=== PATIENT | male | born 1945 | race Hispanic/Latino ===

== ENCOUNTER 2017-08-24 16:39 | Inpatient (IN) | payer MEDICARE ==
[~2017-08-24] VITALS: Ht 167.6 cm; Wt 94.5 kg
[2017-08-24] MEDS: IPRATROPIUM 0.5 MG/2.5 ML INH IH SCH ×4 (08:10→18:00)
[~2017-08-24 16:39] MED LIST: CANA300T PO; EZET10 PO; IPRAHFA IH; LISI10TA7 PO; MECLIZINE PO; MELO-108 PO; METF10004 PO; MONT10TA21 PO; OMEP40CA37 PO; PRAV80TA21 PO; SAXA5TAB PO; TAMS-1 PO; VIT1TABL83 PO
[2017-08-24] MEDS ORDERED: SODIUM CHLORIDE 0.9% 1000ML 1,000 ML IV ONE ×4 (16:53→21:04)
[2017-08-24 17:08] LABS: BASOPHILS % (AUTO) 1.1 % (0.0-5.0); HEMATOCRIT 37.6 % (42-54); MEAN CORPUSCULAR HEMOGLOBIN 29.3 pg (27.0-33.0); MEAN CORPUSCULAR HGB CONC 34.7 g/dL (32.0-36.0); MEAN CORPUSCULAR VOLUME 84.4 fL (79-99); MONOCYTES % (AUTO) 6.2 % (3.0-13.0); NEUTROPHILS % (AUTO) 74.7 % (40.0-77.0); PLATELET COUNT (AUTO) 398 K/uL (130-400); RED BLOOD CELL COUNT(AUTO) 4.45 MIL/uL (4.50-6.20); RED CELL DISTRIBUTION WIDTH 13.9 % (11.0-15.5); WHITE BLOOD COUNT (AUTO) 7.8 K/uL (4.8-10.8)
[2017-08-24 17:38] LABS: ALBUMIN 2.8 g/dL (3.5-5.0); BILIRUBIN,TOTAL 0.3 mg/dL (0.2-1.0); CREATINE KINASE MB 1.4 ng/mL (0.5-3.6); CREATININE 1.8 mg/dL (0.5-1.5); POTASSIUM 4.2 mmol/L (3.5-5.1); TOTAL PROTEIN, SERUM 6.1 g/dL (6.0-8.3)
[2017-08-24] MEDS ORDERED: INSULIN HUMULIN R 100 UNIT/ML 3ML ONE ×2 (18:06→18:58)
[2017-08-24 18:23] LABS: BASE EXCESS,VENOUS BLOOD GAS -6.5 (-2.0-3.0); PCO2,VENOUS BLOOD GAS 49 (35-48); PH,VENOUS BLOOD GAS 7.247 (7.350-7.450)
[2017-08-24 19:42] LABS: APPEARANCE,URINE Clear (CLEAR); BILIRUBIN,URINE Negative (NEGATIVE); COLOR,URINE Yellow (YELLOW); GLUCOSE, URINE (UA) >=1000 mg/dL (NEGATIVE); KETONES,URINE Negative (NEGATIVE); LEUKOCYTE ESTERASE ,URINE Negative (NEGATIVE); NITRATE,URINE Negative (NEGATIVE); OCCULT BLOOD,URINE Negative (NEGATIVE); PROTEIN,URINE Negative (NEGATIVE); UROBILINOGEN,URINE 0.2 mg/dL (0.2-1.0)
[2017-08-24 19:53] LABS: BACTERIA,URINE Rare /HPF (None Seen); RBC,URINE 0-1 /HPF (0-1); WBC,URINE 0-1 /HPF (0-1); YEAST,URINE BUDDING Rare /HPF (None Seen)
[2017-08-24 19:54] LABS: SQUAMOUS EPITHELIAL CELL,UR Rare /HPF (0-2)
[2017-08-24] MEDS ORDERED: POTASSIUM CHLORIDE 20 MEQ ERTAB PO PRN (20:00)
[2017-08-24] MEDS ORDERED: POTASSIUM CHLORIDE 10% ELIXIR 20 MEQ/15 ML UDCUP PO PRN (20:00)
[2017-08-24] MEDS ORDERED: FAMOTIDINE 20MG TAB 20 MG TAB PO SCH (20:00)
[2017-08-24] MEDS ORDERED: GLUCAGON 1MG KIT 1 MG ML IM PRN (20:00)
[2017-08-24] MEDS ORDERED: DEXTROSE 50%-WATER 50 ML DISP.SYRIN IV PRN (20:00)
[2017-08-24] MEDS ORDERED: POTASSIUM CHLORIDE 20MEQ/100ML 100 ML IV PRN (20:00)
[2017-08-24] MEDS ORDERED: LIDOCAINE HCL-MPF 1% 2ML VIAL IVP PRN (20:00)
[2017-08-24] MEDS ORDERED: EZETIMIBE 10 MG TAB PO SCH (21:00)
[2017-08-24] MEDS ORDERED: FAMOTIDINE 20MG TAB 20 MG TAB ONE (21:04)
[2017-08-25 05:55] LABS: HEMOGLOBIN A1C 11.7 % (4.0-6.0)
[2017-08-25 05:58] LABS: CREATININE 1.1 mg/dL (0.5-1.5)
[2017-08-25] MEDS: IPRATROPIUM 0.5 MG/2.5 ML INH IH SCH ×6 (06:00→23:34)
[2017-08-25] MEDS ORDERED: INSULIN DETEMIR 10ML 100 UNIT/ML 10ML SQ SCH (07:30)
[2017-08-25] MEDS ORDERED: IPRATROPIUM 0.5 MG/2.5 ML INH IH ONE (08:08)
[2017-08-25] MEDS: ENOXAPARIN SODIUM 40 MG/0.4 ML SYRINGE SQ SCH (09:00)
[2017-08-25] MEDS: SAXAGLIPTIN HCL 5 MG PO SCH (09:00)
[2017-08-25] MEDS: VITAMIN B COMPLEX 1 CAPSULE PO SCH (09:00)
[2017-08-25] MEDS: TAMSULOSIN HCL 0.4 MG CAP.ER.24H PO SCH (09:00)
[2017-08-25] MEDS: MELOXICAM 7.5 MG TABLET PO SCH (09:00)
[2017-08-25] MEDS: LISINOPRIL 10 MG TABLET PO SCH (09:00)
[2017-08-25] MEDS: CANAGLIFLOZIN 300 MG PO SCH (09:00)
[2017-08-25] MEDS: MONTELUKAST SODIUM 10 MG TAB PO SCH (09:00)
[2017-08-25] MEDS ORDERED: ENOXAPARIN SODIUM 40 MG/0.4 ML SYRINGE SQ ONE (09:02)
[2017-08-25 15:03] VITALS: BP 148/65
[2017-08-25 16:00] VITALS: BP 134/65
[2017-08-25] MEDS ORDERED: LEVOFLOXACIN 500 MG/D5W 100 ML 100 ML IV SCH (16:00)
[2017-08-25] MEDS: SODIUM CHLORIDE 0.9% 1000ML 1,000 ML IV SCH ×3 (16:33→21:03)
[2017-08-25] MEDS: INSULIN LISPRO 100 UNIT/ML 3ML SQ SCH ×2 (17:51→21:02)
[2017-08-25 20:00] VITALS: BP 140/68
[2017-08-25] MEDS: PRAVASTATIN SODIUM 80 MG PO SCH (21:00)
[2017-08-26] VITALS: BP 118/62
[2017-08-26 03:53] VITALS: BP 140/76
[2017-08-26 04:55] LABS: HEMATOCRIT 36.7 % (42-54); MEAN CORPUSCULAR HEMOGLOBIN 28.7 pg (27.0-33.0); MEAN CORPUSCULAR HGB CONC 34.3 g/dL (32.0-36.0); MEAN CORPUSCULAR VOLUME 83.6 fL (79-99); NUCLEATED RED BLOOD CELLS 0.1 % (0.0-0.19); PLATELET COUNT (AUTO) 326 K/uL (130-400); RED BLOOD CELL COUNT(AUTO) 4.39 MIL/uL (4.50-6.20); RED CELL DISTRIBUTION WIDTH 14.1 % (11.0-15.5); WHITE BLOOD COUNT (AUTO) 7.1 K/uL (4.8-10.8)
[2017-08-26 05:01] LABS: MAGNESIUM 1.8 mg/dL (1.80-2.40)
[2017-08-26] MEDS: SODIUM CHLORIDE 0.9% 1000ML 1,000 ML IV SCH ×2 (05:20→12:00)
[2017-08-26] MEDS: INSULIN LISPRO 100 UNIT/ML 3ML SQ SCH ×2 (06:32→13:00)
[2017-08-26] MEDS: IPRATROPIUM 0.5 MG/2.5 ML INH IH SCH ×2 (06:37→11:01)
[2017-08-26] MEDS ORDERED: INSULIN GLARGINE 100 UNITS/ML 10 ML VIAL SQ SCH (07:30)
[2017-08-26] MEDS: MONTELUKAST SODIUM 10 MG TAB PO SCH (07:56)
[2017-08-26] MEDS: TAMSULOSIN HCL 0.4 MG CAP.ER.24H PO SCH (07:57)
[2017-08-26] MEDS: MELOXICAM 7.5 MG TABLET PO SCH (07:57)
[2017-08-26] MEDS: VITAMIN B COMPLEX 1 CAPSULE PO SCH (07:57)
[2017-08-26] MEDS: ENOXAPARIN SODIUM 40 MG/0.4 ML SYRINGE SQ SCH (07:58)
[2017-08-26 08:00] VITALS: BP 143/65
[2017-08-26] MEDS: CANAGLIFLOZIN 300 MG PO SCH (08:00)
[2017-08-26] MEDS: SAXAGLIPTIN HCL 5 MG PO SCH (08:00)
[2017-08-26] MEDS: PRAVASTATIN SODIUM 80 MG PO SCH (08:01)
[2017-08-26] MEDS: LISINOPRIL 10 MG TABLET PO SCH (08:19)
[2017-08-26 11:45] VITALS: BP 136/72
[2017-08-26] MEDS ORDERED: LEVO500T2 PO (13:22)
== END 2017-08-26 17:20 | disposition home or self-care (01) | DRG 202 ==
LOC: EDH 16:39 → EDHIP 19:02 → 3CH 08-25 14:46
PROVIDERS: ADMIT Internal Medicine Nephrology; ATTEND Internal Medicine Nephrology
DX: J20.9 Acute bronchitis, unspecified (principal); J44.0 Chronic obstructive pulmonary disease with (acute) lower respiratory infection; E11.65 Type 2 diabetes mellitus with hyperglycemia; J44.1 Chronic obstructive pulmonary disease with (acute) exacerbation; E86.0 Dehydration; E66.9 Obesity, unspecified; E78.5 Hyperlipidemia, unspecified; I10 Essential (primary) hypertension; Z91.81 History of falling; N47.1 Phimosis; M19.90 Unspecified osteoarthritis, unspecified site; K21.9 Gastro-esophageal reflux disease without esophagitis; N40.1 Benign prostatic hyperplasia with lower urinary tract symptoms; Z68.33 Body mass index [BMI] 33.0-33.9, adult; Z85.72 Personal history of non-Hodgkin lymphomas
CPT/HCPCS: 36415; 36600; 71045; 80048; 80053; 80061; 81001; 82550; 82553; 82803; 82948; 83036; 83605; 83735; 84443; 84484; 85025; 85027; 87040; 87088; 87633; 93005; 94640; 94664; 99291; J1650; J1815; J1956; J7030

== ENCOUNTER 2017-08-29 03:39 | Emergency (ER) | payer MEDICARE ==
[~2017-08-29 03:39] MED LIST changes: +LEVO500T2 PO
[2017-08-29 04:14] LABS: APPEARANCE,URINE Clear (CLEAR); BILIRUBIN,URINE Negative (NEGATIVE); COLOR,URINE Yellow (YELLOW); GLUCOSE, URINE (UA) >=1000 mg/dL (NEGATIVE); KETONES,URINE Negative (NEGATIVE); LEUKOCYTE ESTERASE ,URINE Trace (NEGATIVE); NITRATE,URINE Negative (NEGATIVE); OCCULT BLOOD,URINE Negative (NEGATIVE); PH,URINE 6.5 (5.0-8.0); PROTEIN,URINE Negative (NEGATIVE); UROBILINOGEN,URINE 0.2 mg/dL (0.2-1.0)
[2017-08-29 04:21] LABS: BACTERIA,URINE None Seen /HPF (None Seen); RBC,URINE None Seen /HPF (0-1); SQUAMOUS EPITHELIAL CELL,UR Few /HPF (0-2); WBC,URINE 0-1 /HPF (0-1)
[2017-08-29 04:46] LABS: BASOPHILS % (AUTO) 1.1 % (0.0-5.0); EOSINOPHILS % (AUTO) 2.7 % (0.0-8.0); HEMATOCRIT 39.6 % (42-54); LYMPHOCYTES % (AUTO) 25.1 % (21.0-51.0); MEAN CORPUSCULAR HEMOGLOBIN 27.9 pg (27.0-33.0); MEAN CORPUSCULAR HGB CONC 33.4 g/dL (32.0-36.0); MEAN CORPUSCULAR VOLUME 83.6 fL (79-99); MONOCYTES % (AUTO) 10.9 % (3.0-13.0); NEUTROPHILS % (AUTO) 60.2 % (40.0-77.0); NUCLEATED RED BLOOD CELLS 0.1 % (0.0-0.19); PLATELET COUNT (AUTO) 317 K/uL (130-400); RED BLOOD CELL COUNT(AUTO) 4.73 MIL/uL (4.50-6.20); RED CELL DISTRIBUTION WIDTH 14.1 % (11.0-15.5); WHITE BLOOD COUNT (AUTO) 7.2 K/uL (4.8-10.8)
[2017-08-29] MEDS ORDERED: IPRATROPIUM/ALBUTEROL SULFATE 3 ML SOLUTION IH ONE (04:47)
[2017-08-29 04:57] LABS: CREATININE 1.1 mg/dL (0.5-1.5); POTASSIUM 4.3 mmol/L (3.5-5.1)
[2017-08-29 05:02] LABS: ALBUMIN 3.3 g/dL (3.5-5.0); BILIRUBIN,TOTAL 0.5 mg/dL (0.2-1.0)
[2017-08-29 05:11] LABS: CREATINE KINASE MB 1.7 ng/mL (0.5-3.6); CREATINE KINASE, TOTAL 142 U/L (21-232); MYOGLOBIN 92 ng/mL (10-92); TROPONIN I < 0.04 ng/mL (0.00-0.06)
[2017-08-29] MEDS ORDERED: LIDOCAINE HCL 2% VISCOUS 15 ML UDCUP ONE (05:37)
[2017-08-29] MEDS ORDERED: MAG HYDROX/AL HYDROX/SIMETH ES 30 ML SUSP UDCUP ONE (05:37)
== END 2017-08-29 07:05 | disposition home or self-care (01) ==
LOC: EDH 03:39
DX: K21.9 Gastro-esophageal reflux disease without esophagitis (principal); M19.90 Unspecified osteoarthritis, unspecified site; E11.9 Type 2 diabetes mellitus without complications; E78.5 Hyperlipidemia, unspecified; I10 Essential (primary) hypertension; Z98.890 Other specified postprocedural states
CPT/HCPCS: 36415; 71045; 80053; 81001; 82550; 82553; 83874; 84484; 85025; 93005; 94640

== ENCOUNTER 2017-09-07 02:12 | Emergency (ER) | payer MEDICARE ==
[2017-09-07] MEDS ORDERED: LIDOCAINE HCL 2% VISCOUS 15 ML UDCUP ONE (02:26)
[2017-09-07] MEDS ORDERED: MAG HYDROX/AL HYDROX/SIMETH ES 30 ML SUSP UDCUP ONE (02:26)
[2017-09-07 02:32] LABS: BASOPHILS % (AUTO) 0.8 % (0.0-5.0); EOSINOPHILS % (AUTO) 3.4 % (0.0-8.0); HEMATOCRIT 37.3 % (42-54); LYMPHOCYTES % (AUTO) 24.7 % (21.0-51.0); MEAN CORPUSCULAR HEMOGLOBIN 28.2 pg (27.0-33.0); MEAN CORPUSCULAR HGB CONC 33.8 g/dL (32.0-36.0); MEAN CORPUSCULAR VOLUME 83.4 fL (79-99); MONOCYTES % (AUTO) 9.7 % (3.0-13.0); NEUTROPHILS % (AUTO) 61.4 % (40.0-77.0); PLATELET COUNT (AUTO) 295 K/uL (130-400); RED BLOOD CELL COUNT(AUTO) 4.47 MIL/uL (4.50-6.20); RED CELL DISTRIBUTION WIDTH 13.8 % (11.0-15.5); WHITE BLOOD COUNT (AUTO) 9.1 K/uL (4.8-10.8)
[2017-09-07 02:38] LABS: CREATININE 1.3 mg/dL (0.5-1.5)
[2017-09-07 02:43] LABS: ALBUMIN 3.2 g/dL (3.5-5.0); BILIRUBIN,TOTAL 0.4 mg/dL (0.2-1.0); TOTAL PROTEIN, SERUM 6.4 g/dL (6.0-8.3)
== END 2017-09-07 03:13 | disposition home or self-care (01) ==
LOC: EDH 02:12
DX: Z00.00 Encounter for general adult medical examination without abnormal findings (principal); R10.13 Epigastric pain; M19.90 Unspecified osteoarthritis, unspecified site; E11.9 Type 2 diabetes mellitus without complications; K21.9 Gastro-esophageal reflux disease without esophagitis; I10 Essential (primary) hypertension; Z98.890 Other specified postprocedural states
CPT/HCPCS: 36415; 71045; 80053; 83690; 84484; 85025; 93005

== ENCOUNTER 2017-10-27 00:55 | Emergency (ER) | payer MEDICARE | END 2017-10-27 03:05 | disposition home or self-care (01) | LOC: EDH 00:55 | DX: S02.2XXA Fracture of nasal bones, initial encounter for closed fracture (principal); S00.12XA Contusion of left eyelid and periocular area, initial encounter; E11.9 Type 2 diabetes mellitus without complications; E78.5 Hyperlipidemia, unspecified; I10 Essential (primary) hypertension; M19.90 Unspecified osteoarthritis, unspecified site; K21.9 Gastro-esophageal reflux disease without esophagitis; Z72.0 Tobacco use; Y04.0XXA Assault by unarmed brawl or fight, initial encounter; Y93.89 Activity, other specified; Y92.098 Other place in other non-institutional residence as the place of occurrence of the external cause; Y99.8 Other external cause status | CPT/HCPCS: 70450; 70486; 71045 ==

== ENCOUNTER 2018-07-27 16:55 | Emergency (ER) | payer MEDICARE, OTHER ==
[~2018-07-27 16:55] MED LIST changes: +ALBU18HF7 IH; +ASPI-1197 PO; +GLIP10TA9 PO; +INSU3INS3 SQ; -LEVO500T2 PO; -MECLIZINE PO; +METF-446 PO; -METF10004 PO; -OMEP40CA37 PO; -PRAV80TA21 PO; +ROSU20TA30 PO; -SAXA5TAB PO; +SITA100T12 PO; +TORS10TA18 PO; -VIT1TABL83 PO
[2018-07-27 17:35] LABS: BASOPHILS % (AUTO) 0.8 % (0.0-5.0); EOSINOPHILS % (AUTO) 2.4 % (0.0-8.0); HEMATOCRIT 40.9 % (42-54); LYMPHOCYTES % (AUTO) 18.4 % (21.0-51.0); MEAN CORPUSCULAR HEMOGLOBIN 28.9 pg (27.0-33.0); MEAN CORPUSCULAR HGB CONC 33.5 g/dL (32.0-36.0); MEAN CORPUSCULAR VOLUME 86.1 fL (79-99); MONOCYTES % (AUTO) 7.8 % (3.0-13.0); NEUTROPHILS % (AUTO) 70.6 % (40.0-77.0); PLATELET COUNT (AUTO) 238 K/uL (130-400); RED BLOOD CELL COUNT(AUTO) 4.75 MIL/uL (4.50-6.20); WHITE BLOOD COUNT (AUTO) 7.2 K/uL (4.8-10.8)
[2018-07-27 17:48] LABS: CREATININE 1.2 mg/dL (0.5-1.5); POTASSIUM 4.7 mmol/L (3.5-5.1)
[2018-07-27] MEDS ORDERED: LIDOCAINE HCL 2% VISCOUS 15 ML UDCUP ONE (17:50)
[2018-07-27] MEDS ORDERED: MAG HYDROX/AL HYDROX/SIMETH ES 30 ML SUSP UDCUP ONE (17:51)
[2018-07-27 17:53] LABS: ALBUMIN 3.5 g/dL (3.5-5.0); BILIRUBIN,TOTAL 0.3 mg/dL (0.2-1.0); TOTAL PROTEIN, SERUM 6.8 g/dL (6.0-8.3)
== END 2018-07-27 18:41 | disposition home or self-care (01) ==
LOC: EDH 16:55
DX: K30 Functional dyspepsia (principal); R19.5 Other fecal abnormalities; E11.9 Type 2 diabetes mellitus without complications; E78.5 Hyperlipidemia, unspecified; K21.9 Gastro-esophageal reflux disease without esophagitis; J45.909 Unspecified asthma, uncomplicated; M19.90 Unspecified osteoarthritis, unspecified site; I10 Essential (primary) hypertension
CPT/HCPCS: 36415; 71045; 80053; 82270; 84484; 85025; 93005

== ENCOUNTER 2019-06-23 10:09 | Emergency (ER) | payer OTHER, MEDICARE ==
[~2019-06-23 10:09] MED LIST changes: -EZET10 PO; +EZET10TA13 PO; -ROSU20TA30 PO; +ROSU20TA31 PO
[2019-06-23] MEDS ORDERED: SODIUM CHLORIDE 0.9% 1000ML 1,000 ML IV ONE (10:27)
[2019-06-23 10:50] LABS: BASOPHILS % (AUTO) 0.2 % (0.0-5.0); EOSINOPHILS % (AUTO) 0.2 % (0.0-8.0); HEMATOCRIT 39.8 % (42-54); MEAN CORPUSCULAR HGB CONC 32.4 g/dL (32.0-36.0); MEAN CORPUSCULAR VOLUME 86.3 fL (79-99); MONOCYTES % (AUTO) 4.5 % (3.0-13.0); NEUTROPHILS % (AUTO) 88.5 % (40.0-77.0); PLATELET COUNT (AUTO) 426 K/uL (130-400); RED BLOOD CELL COUNT(AUTO) 4.61 MIL/uL (4.50-6.20); RED CELL DISTRIBUTION WIDTH 12.4 % (11.0-15.5); WHITE BLOOD COUNT (AUTO) 12.2 K/uL (4.8-10.8)
[2019-06-23] MEDS ORDERED: ACETAMINOPHEN 325 MG TAB ONE (10:52)
[2019-06-23 11:01] LABS: CREATININE 0.8 mg/dL (0.5-1.5); POTASSIUM 4.7 mmol/L (3.5-5.1)
[2019-06-23] MEDS ORDERED: KETOROLAC TROMETHAMINE 30MG/ML ONE (12:04)
[2019-06-23] MEDS ORDERED: INSULIN HUMULIN R 100 UNIT/ML 3ML ONE (12:05)
== END 2019-06-23 13:34 | disposition home or self-care (01) ==
LOC: EDH 10:09
DX: S02.32XA Fracture of orbital floor, left side, initial encounter for closed fracture (principal); J45.909 Unspecified asthma, uncomplicated; E11.9 Type 2 diabetes mellitus without complications; K21.9 Gastro-esophageal reflux disease without esophagitis; E78.5 Hyperlipidemia, unspecified; I10 Essential (primary) hypertension; Z87.891 Personal history of nicotine dependence; W18.39XA Other fall on same level, initial encounter; Y93.01 Activity, walking, marching and hiking; Y92.89 Other specified places as the place of occurrence of the external cause; Y99.8 Other external cause status
CPT/HCPCS: 36415; 70486; 80048; 82948; 85025; 96374; 96375; 99285; J1815; J1885; J7030

== ENCOUNTER 2019-07-12 16:51 | Inpatient (IN) | payer OTHER, MEDICARE ==
[~2019-07-12] VITALS: Ht 167.6 cm; Wt 72.6 kg
[~2019-07-12 16:51] MED LIST changes: +AMOX-429 PO; +GABA-529 PO; +OMEP20CA12 PO; +ROPI1TAB13 PO
[2019-07-12] MEDS ORDERED: SODIUM CHLORIDE 0.9% 500ML 500 ML IV ONE ×2 (17:13→19:27)
[2019-07-12 17:14] LABS: BASOPHILS % (AUTO) 0.7 % (0.0-5.0); EOSINOPHILS % (AUTO) 0.7 % (0.0-8.0); HEMATOCRIT 33.1 % (42-54); LYMPHOCYTES % (AUTO) 11.7 % (21.0-51.0); MEAN CORPUSCULAR HEMOGLOBIN 28.1 pg (27.0-33.0); MEAN CORPUSCULAR VOLUME 87.8 fL (79-99); MONOCYTES % (AUTO) 5.5 % (3.0-13.0); PLATELET COUNT (AUTO) 391 K/uL (130-400); RED BLOOD CELL COUNT(AUTO) 3.77 MIL/uL (4.50-6.20); WHITE BLOOD COUNT (AUTO) 7.2 K/uL (4.8-10.8)
[2019-07-12] MEDS ORDERED: ASPIRIN 325 MG TABLET ONE (17:19)
[2019-07-12 17:26] LABS: CREATININE 1.2 mg/dL (0.5-1.5); POTASSIUM 4.6 mmol/L (3.5-5.1)
[2019-07-12 17:28] LABS: INR 1.04 (0.85-1.15); PARTIAL THROMBOPLASTIN TIME 31.7 SEC (26.3-35.5); PROTHROMBIN TIME 10.9 SEC (9.6-11.6)
[2019-07-12 17:33] LABS: ALBUMIN 2.2 g/dL (3.5-5.0); BILIRUBIN,TOTAL 0.4 mg/dL (0.2-1.0); TOTAL PROTEIN, SERUM 7.2 g/dL (6.0-8.3)
[2019-07-12] MEDS ORDERED: HYDROMORPHONE 1 MG/1 ML AMP ONE (21:15)
[2019-07-12] MEDS ORDERED: ONDANSETRON HCL 4 MG/2 ML VIAL ONE (21:15)
[2019-07-13] MEDS ORDERED: HYDROMORPHONE HCL 0.5 MG/0.5 ML ML IVP PRN (01:15)
[2019-07-13] MEDS ORDERED: IPRATROPIUM/ALBUTEROL SULFATE 3 ML SOLUTION IH PRN (01:15)
[2019-07-13] MEDS ORDERED: HYDROMORPHONE 1 MG/1 ML AMP ONE (03:23)
[2019-07-13 08:54] LABS: BASOPHILS % (AUTO) 0.6 % (0.0-5.0); HEMATOCRIT 32.3 % (42-54); LYMPHOCYTES % (AUTO) 12.3 % (21.0-51.0); MEAN CORPUSCULAR HGB CONC 31.9 g/dL (32.0-36.0); MEAN CORPUSCULAR VOLUME 87.8 fL (79-99); MONOCYTES % (AUTO) 6.1 % (3.0-13.0); NEUTROPHILS % (AUTO) 79.6 % (40.0-77.0); PLATELET COUNT (AUTO) 353 K/uL (130-400); RED BLOOD CELL COUNT(AUTO) 3.68 MIL/uL (4.50-6.20); WHITE BLOOD COUNT (AUTO) 7.3 K/uL (4.8-10.8)
[2019-07-13] MEDS: ENOXAPARIN SODIUM 40 MG/0.4 ML SYRINGE SQ SCH (09:00)
[2019-07-13] MEDS: ASPIRIN 81 MG EC TAB PO SCH (09:00)
[2019-07-13 09:15] LABS: CREATININE 0.9 mg/dL (0.5-1.5); POTASSIUM 4.2 mmol/L (3.5-5.1)
[2019-07-13] MEDS ORDERED: ACETAMINOPHEN 325 MG TAB ONE (10:42)
--- NOTE | 2019-07-13 14:27 | NUR ---
DCP: SNF AT [facility] met with pt who states he lives at home alone. Pt states he has been having more difficulty with completing ADLS, frequent falls at home. Pt was recently approved for provider services and does not know # of hours he was approved for. Pt also attends [facility] adult [facility] [phone] daily. Pt reports yesterday he was reaching for his dog and fell face first. Pt reports feeling dizzy and having pain to face. Pt wanting to go to [facility] [place] for [facility]. Pt signed consent for referral. [id number] on chart with consent. CM to make referral Addendum: 07/13/19 at 1435 by NEVA LAUREN Amended: Links added.
[2019-07-13 15:32] VITALS: BP 125/70
[2019-07-13] MEDS: ACETAMINOPHEN 325 MG TAB PO PRN (19:49)
[2019-07-13 19:51] VITALS: BP 121/57
[2019-07-13] MEDS: FAMOTIDINE/PF 20 MG/2 ML VIAL IV SCH (21:37)
[2019-07-13 23:48] VITALS: BP 104/55
[2019-07-14] MEDS: ACETAMINOPHEN 325 MG TAB PO PRN ×2 (03:52→23:14)
[2019-07-14 04:10] VITALS: BP 115/56
[2019-07-14 05:05] LABS: HEMATOCRIT 32.7 % (42-54); MEAN CORPUSCULAR HGB CONC 31.8 g/dL (32.0-36.0); MEAN CORPUSCULAR VOLUME 87.9 fL (79-99); PLATELET COUNT (AUTO) 386 K/uL (130-400); RED BLOOD CELL COUNT(AUTO) 3.72 MIL/uL (4.50-6.20); RED CELL DISTRIBUTION WIDTH 13.2 % (11.0-15.5); WHITE BLOOD COUNT (AUTO) 8.2 K/uL (4.8-10.8)
[2019-07-14 05:09] LABS: CREATININE 1.2 mg/dL (0.5-1.5); POTASSIUM 4.3 mmol/L (3.5-5.1)
[2019-07-14 07:37] VITALS: BP 120/58
[2019-07-14] MEDS ORDERED: ROSU20TA31 PO (08:20)
[2019-07-14] MEDS ORDERED: INSLAN SQ (08:20)
[2019-07-14] MEDS ORDERED: LACT10SO PO (08:20)
[2019-07-14] MEDS: ASPIRIN 81 MG EC TAB PO SCH (10:20)
[2019-07-14] MEDS: FAMOTIDINE/PF 20 MG/2 ML VIAL IV SCH ×2 (10:20→20:29)
[2019-07-14] MEDS: ENOXAPARIN SODIUM 40 MG/0.4 ML SYRINGE SQ SCH (10:21)
[2019-07-14 11:35] VITALS: BP 118/56
[2019-07-14] MEDS ORDERED: ALBUTEROL SULFATE 0.083% 2.5 MG/3 ML INH IH PRN (13:45)
[2019-07-14] MEDS ORDERED: LACTULOSE 20 GM/30 ML UDCUP PO PRN (13:45)
[2019-07-14] MEDS ORDERED: GABAPENTIN 100 MG CAPSULE ONE (14:57)
[2019-07-14] MEDS: GABAPENTIN 100 MG CAPSULE PO SCH (15:01)
[2019-07-14] MEDS ORDERED: GLUCAGON 1MG KIT 1 MG ML IM PRN (15:15)
[2019-07-14] MEDS ORDERED: DEXTROSE 50%-WATER 50 ML DISP.SYRIN IV PRN (15:15)
[2019-07-14 16:15] VITALS: BP 120/59
[2019-07-14] MEDS: METFORMIN HCL 500 MG TABLET PO SCH (17:56)
[2019-07-14] MEDS: INSULIN HUMULIN R 100 UNIT/ML 3ML SQ SCH ×2 (17:59→22:02)
[2019-07-14] MEDS: IPRATROPIUM 0.5 MG/2.5 ML INH IH SCH (19:19)
[2019-07-14 19:36] VITALS: BP 119/57
[2019-07-14] MEDS: EZETIMIBE 10 MG TAB PO SCH (20:29)
[2019-07-14] MEDS: MONTELUKAST SODIUM 10 MG TAB PO SCH (20:29)
[2019-07-14] MEDS: GLIPIZIDE 5 MG TABLET PO SCH (20:29)
[2019-07-14] MEDS: ATORVASTATIN CALCIUM 40 MG TABLET PO SCH (20:29)
[2019-07-14] MEDS: INSULIN GLARGINE 100 UNITS/ML 10 ML VIAL SQ SCH (21:00)
[2019-07-14 23:24] VITALS: BP 131/64
[2019-07-15 03:49] VITALS: BP 117/55
[2019-07-15 04:52] LABS: BASOPHILS % (AUTO) 0.5 % (0.0-5.0); EOSINOPHILS % (AUTO) 1.9 % (0.0-8.0); HEMATOCRIT 31.8 % (42-54); LYMPHOCYTES % (AUTO) 13.1 % (21.0-51.0); MEAN CORPUSCULAR HEMOGLOBIN 28.2 pg (27.0-33.0); MEAN CORPUSCULAR HGB CONC 32.1 g/dL (32.0-36.0); MEAN CORPUSCULAR VOLUME 87.8 fL (79-99); MONOCYTES % (AUTO) 7.8 % (3.0-13.0); NEUTROPHILS % (AUTO) 76.3 % (40.0-77.0); PLATELET COUNT (AUTO) 356 K/uL (130-400); RED BLOOD CELL COUNT(AUTO) 3.62 MIL/uL (4.50-6.20); RED CELL DISTRIBUTION WIDTH 13.3 % (11.0-15.5); WHITE BLOOD COUNT (AUTO) 8.1 K/uL (4.8-10.8)
[2019-07-15 04:53] LABS: HEMOGLOBIN A1C 14.4 % (4.0-6.0)
[2019-07-15 05:02] LABS: CREATININE 0.9 mg/dL (0.5-1.5); POTASSIUM 3.6 mmol/L (3.5-5.1)
[2019-07-15] MEDS: INSULIN HUMULIN R 100 UNIT/ML 3ML SQ SCH ×3 (05:50→21:15)
[2019-07-15] MEDS: IPRATROPIUM 0.5 MG/2.5 ML INH IH SCH ×3 (06:47→19:12)
[2019-07-15] MEDS ORDERED: REGADENOSON 0.4 MG/5 ML PF SYG IVP SCH (07:15)
[2019-07-15] MEDS: ASPIRIN 81MG TAB.CHEW PO SCH (07:40)
[2019-07-15] MEDS: METFORMIN HCL 500 MG TABLET PO SCH ×2 (07:40→17:01)
[2019-07-15] MEDS: ROPINIROLE HCL 1 MG TABLET PO SCH (07:41)
[2019-07-15] MEDS: TAMSULOSIN HCL 0.4 MG CAP.ER.24H PO SCH (07:41)
[2019-07-15] MEDS: ENOXAPARIN SODIUM 40 MG/0.4 ML SYRINGE SQ SCH (07:41)
[2019-07-15] MEDS: GLIPIZIDE 5 MG TABLET PO SCH ×2 (07:41→21:00)
[2019-07-15] MEDS: CANAGLIFLOZIN 300 MG PO SCH (07:41)
[2019-07-15] MEDS: LINAGLIPTIN 5 MG TABLET PO SCH (07:41)
[2019-07-15 07:43] VITALS: BP 104/58
[2019-07-15] MEDS: FAMOTIDINE/PF 20 MG/2 ML VIAL IV SCH ×2 (09:57→21:11)
--- NOTE | 2019-07-15 13:52 | NUR ---
[facility]. SW contacted Ivette Montalvo, [employer] for [facility] in [place] and notified of referral. Pending eval and acceptance. DCP is to [facility].
[2019-07-15 16:26] VITALS: BP 125/63
[2019-07-15] MEDS: GABAPENTIN 100 MG CAPSULE PO SCH (17:02)
[2019-07-15] MEDS: LACTULOSE 20 GM/30 ML UDCUP PO PRN (17:02)
[2019-07-15] MEDS: ACETAMINOPHEN 325 MG TAB PO PRN ×2 (18:43→22:09)
[2019-07-15 19:28] VITALS: BP 137/74
[2019-07-15] MEDS: EZETIMIBE 10 MG TAB PO SCH (21:11)
[2019-07-15] MEDS: ATORVASTATIN CALCIUM 40 MG TABLET PO SCH (21:11)
[2019-07-15] MEDS: MONTELUKAST SODIUM 10 MG TAB PO SCH (21:11)
[2019-07-15] MEDS: INSULIN GLARGINE 100 UNITS/ML 10 ML VIAL SQ SCH (21:12)
[2019-07-15 23:47] VITALS: BP 131/64
[2019-07-16] MEDS: ACETAMINOPHEN 325 MG TAB PO PRN ×4 (02:30→21:32)
[2019-07-16 04:00] VITALS: BP 111/61
[2019-07-16 04:55] LABS: HEMATOCRIT 30.5 % (42-54); MEAN CORPUSCULAR HEMOGLOBIN 27.9 pg (27.0-33.0); MEAN CORPUSCULAR HGB CONC 31.5 g/dL (32.0-36.0); MEAN CORPUSCULAR VOLUME 88.7 fL (79-99); PLATELET COUNT (AUTO) 347 K/uL (130-400); RED BLOOD CELL COUNT(AUTO) 3.44 MIL/uL (4.50-6.20); RED CELL DISTRIBUTION WIDTH 13.5 % (11.0-15.5); WHITE BLOOD COUNT (AUTO) 5.8 K/uL (4.8-10.8)
[2019-07-16 05:01] LABS: CREATININE 0.9 mg/dL (0.5-1.5); POTASSIUM 3.8 mmol/L (3.5-5.1)
[2019-07-16 05:15] LABS: BASOPHILS % (MANUAL) 1 % (0-2); EOSINOPHILS % (MANUAL) 1 % (1-6); LYMPHOCYTES % (MANUAL) 17 % (22-44); MAN.DIFF COMMENT-IMPRESSION MANUAL DIFFERENTIAL; MONOCYTES % (MANUAL) 3 % (2-9); PLATELET MORPHOLOGY COMMENT ADEQUATE; SEGMENTED NEUTROPHILS % 78 % (40-70)
[2019-07-16] MEDS: INSULIN HUMULIN R 100 UNIT/ML 3ML SQ SCH ×4 (06:06→20:53)
[2019-07-16] MEDS: IPRATROPIUM 0.5 MG/2.5 ML INH IH SCH ×4 (07:22→21:04)
[2019-07-16 07:43] VITALS: BP 126/64
--- NOTE | 2019-07-16 07:50 | NUR ---
STATUS ENCOUNTERED PATIENT SITTING ON THE EDGE OF BED C/O LEFT SIDED FACIAL PAIN. FULL ASSESSMENT DONE. MEDICATIONS ADMINISTERED. CALL LIGHT WITHIN REACH. INSTRUCTED TO CALL FOR ASSISTANCE.
[2019-07-16] MEDS: FAMOTIDINE/PF 20 MG/2 ML VIAL IV SCH ×2 (07:58→20:52)
[2019-07-16] MEDS: METFORMIN HCL 500 MG TABLET PO SCH ×2 (07:58→16:30)
[2019-07-16] MEDS: GLIPIZIDE 5 MG TABLET PO SCH ×2 (07:58→20:52)
[2019-07-16] MEDS: ASPIRIN 81MG TAB.CHEW PO SCH (07:58)
[2019-07-16] MEDS: ROPINIROLE HCL 1 MG TABLET PO SCH (07:58)
[2019-07-16] MEDS: CANAGLIFLOZIN 300 MG PO SCH (07:59)
[2019-07-16] MEDS: ENOXAPARIN SODIUM 40 MG/0.4 ML SYRINGE SQ SCH (07:59)
[2019-07-16] MEDS: LACTULOSE 20 GM/30 ML UDCUP PO PRN (08:03)
[2019-07-16] MEDS: LINAGLIPTIN 5 MG TABLET PO SCH (08:03)
[2019-07-16] MEDS: TAMSULOSIN HCL 0.4 MG CAP.ER.24H PO SCH (08:03)
[2019-07-16 11:29] VITALS: BP 117/64
[2019-07-16] MEDS ORDERED: LORATADINE 10 MG TABLET ONE (14:06)
[2019-07-16 15:56] VITALS: BP 112/54
[2019-07-16] MEDS: GABAPENTIN 100 MG CAPSULE PO SCH (16:30)
[2019-07-16 19:27] VITALS: BP 121/52
[2019-07-16] MEDS: INSULIN GLARGINE 100 UNITS/ML 10 ML VIAL SQ SCH (20:09)
[2019-07-16] MEDS: EZETIMIBE 10 MG TAB PO SCH (20:52)
[2019-07-16] MEDS: MONTELUKAST SODIUM 10 MG TAB PO SCH (20:52)
[2019-07-16] MEDS: ATORVASTATIN CALCIUM 40 MG TABLET PO SCH (20:52)
[2019-07-16 23:52] VITALS: BP 112/48
[2019-07-17 03:47] VITALS: BP 111/61
[2019-07-17 04:00] VITALS: BP 120/64
[2019-07-17] MEDS: ACETAMINOPHEN 325 MG TAB PO PRN ×3 (04:17→21:35)
[2019-07-17 04:23] LABS: HEMATOCRIT 30.8 % (42-54); MEAN CORPUSCULAR HEMOGLOBIN 27.9 pg (27.0-33.0); MEAN CORPUSCULAR HGB CONC 31.5 g/dL (32.0-36.0); MEAN CORPUSCULAR VOLUME 88.5 fL (79-99); PLATELET COUNT (AUTO) 304 K/uL (130-400); RED BLOOD CELL COUNT(AUTO) 3.48 MIL/uL (4.50-6.20); RED CELL DISTRIBUTION WIDTH 13.8 % (11.0-15.5)
[2019-07-17 04:28] LABS: CREATININE 0.7 mg/dL (0.5-1.5); POTASSIUM 3.7 mmol/L (3.5-5.1)
[2019-07-17 05:19] LABS: BAND NEUTROPHILS % (MANUAL) 1 % (0-2); EOSINOPHILS % (MANUAL) 1 % (1-6); LYMPHOCYTES % (MANUAL) 15 % (22-44); MAN.DIFF COMMENT-IMPRESSION MANUAL DIFFERENTIAL; MONOCYTES % (MANUAL) 7 % (2-9); REACTIVE LYMPHOCYTES 1 % (0-0); SEGMENTED NEUTROPHILS % 75 % (40-70)
[2019-07-17] MEDS: INSULIN HUMULIN R 100 UNIT/ML 3ML SQ SCH ×4 (06:16→21:44)
[2019-07-17] MEDS: IPRATROPIUM 0.5 MG/2.5 ML INH IH SCH ×4 (06:57→18:21)
[2019-07-17 07:46] VITALS: BP 103/55
[2019-07-17] MEDS: TAMSULOSIN HCL 0.4 MG CAP.ER.24H PO SCH (08:38)
[2019-07-17] MEDS: FAMOTIDINE/PF 20 MG/2 ML VIAL IV SCH ×2 (08:38→21:34)
[2019-07-17] MEDS: ROPINIROLE HCL 1 MG TABLET PO SCH (08:38)
[2019-07-17] MEDS: CANAGLIFLOZIN 300 MG PO SCH (08:39)
[2019-07-17] MEDS: GLIPIZIDE 5 MG TABLET PO SCH ×2 (08:39→21:34)
[2019-07-17] MEDS: METFORMIN HCL 500 MG TABLET PO SCH ×2 (08:39→17:45)
[2019-07-17] MEDS: ASPIRIN 81MG TAB.CHEW PO SCH (08:39)
[2019-07-17] MEDS: LINAGLIPTIN 5 MG TABLET PO SCH (08:39)
[2019-07-17] MEDS: ENOXAPARIN SODIUM 40 MG/0.4 ML SYRINGE SQ SCH (08:40)
[2019-07-17 11:58] VITALS: BP 122/61
--- NOTE | 2019-07-17 13:00 | NUR ---
TRANSFER FROM ROOM 220 REPORT RECEIVED FROM DOMONIQUE CALLEJAS (TELE). PATIENT ADMITTED FOR CHEST PAIN AND HYPOTENSION. PATIENT STABLE AT THIS TIME.
[2019-07-17 16:00] VITALS: BP 114/51
[2019-07-17] MEDS: GABAPENTIN 100 MG CAPSULE PO SCH (17:45)
[2019-07-17 19:00] VITALS: BP 114/53
[2019-07-17] MEDS: EZETIMIBE 10 MG TAB PO SCH (21:34)
[2019-07-17] MEDS: MONTELUKAST SODIUM 10 MG TAB PO SCH (21:35)
[2019-07-17] MEDS: ATORVASTATIN CALCIUM 40 MG TABLET PO SCH (21:35)
[2019-07-17] MEDS: INSULIN GLARGINE 100 UNITS/ML 10 ML VIAL SQ SCH (21:46)
--- NOTE | 2019-07-17 23:23 | NUR ---
NOTE PATIENT GOT UP FROM BED. SAYS HE IS FEELING DISCOMFORT (POINTS TO EPIGASTRIC AREA). STATES THAT IT FEELS BETTER ONCE HE IS SITTING UP, BUT RETURNS WHEN HE LAYS DOWN. HE WOULD LIKE SOME MAALOX TO HELP RELIEVE IT. CHECKED EMAR AND NOTICED THAT IT IS NOT ORDERED FOR HIM. PAGED DR. GALLEGO VIA ANSWERING SERVICE.
[2019-07-18] VITALS (8 sets, daily range): BP systolic 104–134; BP diastolic 51–59
[2019-07-18] MEDS ORDERED: MAG HYDROX/AL HYDROX/SIMETH ES 30 ML SUSP UDCUP ONE (00:11)
--- NOTE | 2019-07-18 00:12 | NUR ---
NOTE DR. GALLEGO RETURNED CALL. NOTIFIED OF PATIENT'S EPIGASTRIC DISCOMFORT AND HE WOULD LIKE MAALOX TO HELP HIM RELIEVE IT. RECEIVED ORDERS TO GIVE MAALOX 30ML Q6RS PRN HEARTBURN.
[2019-07-18] MEDS: IPRATROPIUM 0.5 MG/2.5 ML INH IH SCH ×4 (05:58→19:32)
[2019-07-18 06:11] LABS: HEMATOCRIT 29.3 % (42-54); MEAN CORPUSCULAR HEMOGLOBIN 28.5 pg (27.0-33.0); MEAN CORPUSCULAR HGB CONC 32.1 g/dL (32.0-36.0); MEAN CORPUSCULAR VOLUME 88.8 fL (79-99); PLATELET COUNT (AUTO) 300 K/uL (130-400); RED CELL DISTRIBUTION WIDTH 13.8 % (11.0-15.5); WHITE BLOOD COUNT (AUTO) 4.7 K/uL (4.8-10.8)
[2019-07-18 06:26] LABS: CREATININE 0.7 mg/dL (0.5-1.5); POTASSIUM 3.7 mmol/L (3.5-5.1)
[2019-07-18 06:35] LABS: BAND NEUTROPHILS % (MANUAL) 4 % (0-2); BASOPHILS % (MANUAL) 2 % (0-2); EOSINOPHILS % (MANUAL) 2 % (1-6); LYMPHOCYTES % (MANUAL) 25 % (22-44); MAN.DIFF COMMENT-IMPRESSION MANUAL DIFFERENTIAL; MONOCYTES % (MANUAL) 7 % (2-9); PLATELET MORPHOLOGY COMMENT ADEQUATE; REACTIVE LYMPHOCYTES 1 % (0-0); SEGMENTED NEUTROPHILS % 59 % (40-70)
[2019-07-18] MEDS: ACETAMINOPHEN 325 MG TAB PO PRN ×2 (06:36→13:24)
[2019-07-18] MEDS: INSULIN HUMULIN R 100 UNIT/ML 3ML SQ SCH ×4 (06:42→20:23)
[2019-07-18] MEDS: LINAGLIPTIN 5 MG TABLET PO SCH (08:58)
[2019-07-18] MEDS: METFORMIN HCL 500 MG TABLET PO SCH ×2 (08:58→17:44)
[2019-07-18] MEDS: ROPINIROLE HCL 1 MG TABLET PO SCH (08:58)
[2019-07-18] MEDS: GLIPIZIDE 5 MG TABLET PO SCH ×2 (08:59→20:13)
[2019-07-18] MEDS: ASPIRIN 81MG TAB.CHEW PO SCH (08:59)
[2019-07-18] MEDS: LORATADINE 10 MG TABLET PO SCH (08:59)
[2019-07-18] MEDS: TAMSULOSIN HCL 0.4 MG CAP.ER.24H PO SCH (08:59)
[2019-07-18] MEDS: CANAGLIFLOZIN 300 MG PO SCH (08:59)
[2019-07-18] MEDS ORDERED: LORATADINE/PSEUDOEPHED 5/120 MG 1 EACH TAB.SR.12H PO SCH (09:00)
[2019-07-18] MEDS: ENOXAPARIN SODIUM 40 MG/0.4 ML SYRINGE SQ SCH (09:00)
--- NOTE | 2019-07-18 10:22 | NUR ---
DCP SW received a call from Ivette Montalvo, [employer] for [facility] in [place]. She informed that patient's insurance was requesting PT notes. Notes faxed. Pending insurance approval. Noris BEASLEY, made aware.
[2019-07-18] MEDS: FAMOTIDINE/PF 20 MG/2 ML VIAL IV SCH ×2 (10:36→20:12)
--- NOTE | 2019-07-18 14:07 | NUR ---
RD NOTIFICATION RD CONSULTS DUE TO LOS X 6 DAYS. PO INTAKE 100% AND HAS GOOD APPETITE. ON 06/30/19 PT CAME IN WEIGHING 169# AND UPON ADMISSION ON 07/12/19 PT WEIGHING 160# INDICATING SIGNIFICANT WEIGHT LOSS AND PROTEIN/ CALORIE MALNUTRITION. DIET: HEART HEALTHY. PT STATES HAVING DIFFICULTIES CHEWING FOOD DUE TO MISSING TEETH. NO COMPLAINTS OF N/V/C/D AT THIS TIME. LABS REVIEWED (A1C 14.4). MEDS REVIEWED. SKIN IS INTACT. PT IS FAMILIAR WITH DIABETES DIET AND NUTRITION RECOMMENDATIONS AND REFUSED FURTHER NUTRITION EDUCATION AT THIS TIME. RD RECOMMENDS TO ADD 75GMCCD ADD MECHANICAL SOFT/CHOPPED TO DIET ORDER, PT AGREED PT REFUSING DIABETES NUTRITION EDUCATION AT THIS TIME Addendum: 07/18/19 at [address] Amended: Links added.
[2019-07-18] MEDS ORDERED: TRAMADOL HCL 50 MG TABLET ONE (14:56)
[2019-07-18] MEDS: GABAPENTIN 100 MG CAPSULE PO SCH (17:44)
[2019-07-18] MEDS: MAG HYDROX/AL HYDROX/SIMETH ES 30 ML SUSP UDCUP PO PRN (17:51)
[2019-07-18] MEDS ORDERED: PHARMACY COMMUNICATION MISC SCH (18:45)
[2019-07-18] MEDS ORDERED: ONDANSETRON HCL 4 MG/2 ML VIAL IVP PRN (18:45)
[2019-07-18] MEDS: MONTELUKAST SODIUM 10 MG TAB PO SCH (20:13)
[2019-07-18] MEDS: AMOXICILLIN/POTASSIUM CLAV 875-125 TABLET PO SCH (20:13)
[2019-07-18] MEDS: ATORVASTATIN CALCIUM 40 MG TABLET PO SCH (20:13)
[2019-07-18] MEDS: EZETIMIBE 10 MG TAB PO SCH (20:13)
[2019-07-18] MEDS: SODIUM CHLORIDE 45 ML SPRY NS SCH (20:22)
[2019-07-18] MEDS: FLUTICASONE PROPIONATE 50MCG/SPRAY 16 GM BOTTLE EN SCH (20:22)
[2019-07-18] MEDS: INSULIN GLARGINE 100 UNITS/ML 10 ML VIAL SQ SCH (20:23)
--- NOTE | 2019-07-18 23:40 | NUR ---
PT C/O SOB PT C/O SOB. BP 119/51, P 80, O2 99% ROOM AIR. PT EXHIBITS ANXIETY. MEDICATED WITH ATIVAN 1MG PER MD'S ORDERS. WILL CONT TO MONITORS PT'S STATUS.
--- NOTE | 2019-07-18 23:55 | NUR ---
PT RESTING WITH EYES CLOSED IN HIGH FOWLERS. PT STATES HE FEELS BETTER. NO DISTRESS NOTED
[2019-07-19] VITALS (7 sets, daily range): BP systolic 112–141; BP diastolic 52–64
[2019-07-19] MEDS ORDERED: LORAZEPAM 2 MG/ML 1 ML VIAL IM PRN
[2019-07-19] MEDS: IPRATROPIUM/ALBUTEROL SULFATE 3 ML SOLUTION IH SCH ×4 (01:18→18:35)
[2019-07-19 05:22] LABS: MEAN CORPUSCULAR HEMOGLOBIN 28.3 pg (27.0-33.0); MEAN CORPUSCULAR VOLUME 88.5 fL (79-99); PLATELET COUNT (AUTO) 293 K/uL (130-400); RED BLOOD CELL COUNT(AUTO) 3.39 MIL/uL (4.50-6.20); RED CELL DISTRIBUTION WIDTH 14.1 % (11.0-15.5); WHITE BLOOD COUNT (AUTO) 4.9 K/uL (4.8-10.8)
[2019-07-19 05:42] LABS: CREATININE 0.7 mg/dL (0.5-1.5); POTASSIUM 4.1 mmol/L (3.5-5.1)
[2019-07-19] MEDS: IPRATROPIUM 0.5 MG/2.5 ML INH IH SCH ×3 (06:00→18:00)
[2019-07-19] MEDS: INSULIN HUMULIN R 100 UNIT/ML 3ML SQ SCH ×4 (07:30→20:32)
[2019-07-19] MEDS: ROPINIROLE HCL 1 MG TABLET PO SCH (08:18)
[2019-07-19] MEDS: LINAGLIPTIN 5 MG TABLET PO SCH (08:18)
[2019-07-19] MEDS: METFORMIN HCL 500 MG TABLET PO SCH ×2 (08:18→17:16)
[2019-07-19] MEDS: TAMSULOSIN HCL 0.4 MG CAP.ER.24H PO SCH (08:18)
[2019-07-19] MEDS: ASPIRIN 81MG TAB.CHEW PO SCH (08:19)
[2019-07-19] MEDS: FLUTICASONE PROPIONATE 50MCG/SPRAY 16 GM BOTTLE EN SCH ×3 (08:19→20:32)
[2019-07-19] MEDS: SODIUM CHLORIDE 45 ML SPRY NS SCH ×3 (08:19→20:32)
[2019-07-19] MEDS: FAMOTIDINE/PF 20 MG/2 ML VIAL IV SCH ×2 (08:19→21:00)
[2019-07-19] MEDS: GLIPIZIDE 5 MG TABLET PO SCH ×2 (08:19→20:28)
[2019-07-19] MEDS: CANAGLIFLOZIN 300 MG PO SCH (08:20)
[2019-07-19] MEDS: ENOXAPARIN SODIUM 40 MG/0.4 ML SYRINGE SQ SCH (08:20)
[2019-07-19] MEDS: TRAMADOL HCL 50 MG TABLET PO PRN ×3 (08:21→20:26)
[2019-07-19] MEDS: LACTULOSE 20 GM/30 ML UDCUP PO PRN ×2 (08:27→17:21)
--- NOTE | 2019-07-19 09:55 | NUR ---
RAMOS Note: [facility] pending ins auth CM spoke to Ivette leonard/[facility] pt still pending ins auth at this time. Primary nurse aware. CM to cont to follow up.
[2019-07-19] MEDS: AMOXICILLIN/POTASSIUM CLAV 875-125 TABLET PO SCH ×2 (11:42→20:28)
--- NOTE | 2019-07-19 16:27 | NUR ---
CM Note: [facility] ins auth CM spoke to Ivette leonard/[facility]. Pt has ins auth. EMS arranged and faxed for today, primary nurse to call [facility] once pt ready to DC. Primary nurse aware. CM to cont to follow up.
[2019-07-19] MEDS: GABAPENTIN 100 MG CAPSULE PO SCH (17:16)
[2019-07-19] MEDS: MAG HYDROX/AL HYDROX/SIMETH ES 30 ML SUSP UDCUP PO PRN (18:05)
[2019-07-19] MEDS: ATORVASTATIN CALCIUM 40 MG TABLET PO SCH (20:26)
[2019-07-19] MEDS: EZETIMIBE 10 MG TAB PO SCH (20:28)
[2019-07-19] MEDS: MONTELUKAST SODIUM 10 MG TAB PO SCH (20:28)
[2019-07-19] MEDS: INSULIN GLARGINE 100 UNITS/ML 10 ML VIAL SQ SCH (20:32)
[2019-07-20 03:00] VITALS: BP 117/60
[2019-07-20 06:09] LABS: BASOPHILS % (AUTO) 0.3 % (0.0-5.0); EOSINOPHILS % (AUTO) 1.7 % (0.0-8.0); HEMATOCRIT 32.8 % (42-54); LYMPHOCYTES % (AUTO) 33.7 % (21.0-51.0); MEAN CORPUSCULAR HGB CONC 31.4 g/dL (32.0-36.0); MEAN CORPUSCULAR VOLUME 89.1 fL (79-99); MONOCYTES % (AUTO) 10.1 % (3.0-13.0); NEUTROPHILS % (AUTO) 53.9 % (40.0-77.0); PLATELET COUNT (AUTO) 302 K/uL (130-400); RED BLOOD CELL COUNT(AUTO) 3.68 MIL/uL (4.50-6.20); RED CELL DISTRIBUTION WIDTH 14.1 % (11.0-15.5); WHITE BLOOD COUNT (AUTO) 5.9 K/uL (4.8-10.8)
[2019-07-20] MEDS: IPRATROPIUM 0.5 MG/2.5 ML INH IH SCH ×3 (06:26→13:19)
[2019-07-20] MEDS: INSULIN HUMULIN R 100 UNIT/ML 3ML SQ SCH ×3 (06:28→16:30)
[2019-07-20 06:30] LABS: ALBUMIN 2.2 g/dL (3.5-5.0); BILIRUBIN,TOTAL 0.2 mg/dL (0.2-1.0); CREATININE 0.7 mg/dL (0.5-1.5); POTASSIUM 3.7 mmol/L (3.5-5.1); TOTAL PROTEIN, SERUM 6.8 g/dL (6.0-8.3)
[2019-07-20 08:00] VITALS: BP 117/55
[2019-07-20] MEDS: CANAGLIFLOZIN 300 MG PO SCH (09:00)
[2019-07-20] MEDS: FAMOTIDINE/PF 20 MG/2 ML VIAL IV SCH (09:20)
[2019-07-20] MEDS: AMOXICILLIN/POTASSIUM CLAV 875-125 TABLET PO SCH (09:20)
[2019-07-20] MEDS: TAMSULOSIN HCL 0.4 MG CAP.ER.24H PO SCH (09:20)
[2019-07-20] MEDS: SODIUM CHLORIDE 45 ML SPRY NS SCH ×2 (09:20→14:11)
[2019-07-20] MEDS: ASPIRIN 81MG TAB.CHEW PO SCH (09:20)
[2019-07-20] MEDS: LORATADINE 10 MG TABLET PO SCH (09:20)
[2019-07-20] MEDS: METFORMIN HCL 500 MG TABLET PO SCH ×2 (09:20→16:52)
[2019-07-20] MEDS: FLUTICASONE PROPIONATE 50MCG/SPRAY 16 GM BOTTLE EN SCH ×2 (09:20→14:11)
[2019-07-20] MEDS: ROPINIROLE HCL 1 MG TABLET PO SCH (09:20)
[2019-07-20] MEDS: LINAGLIPTIN 5 MG TABLET PO SCH (09:21)
[2019-07-20] MEDS: GLIPIZIDE 5 MG TABLET PO SCH (09:22)
[2019-07-20] MEDS: MAG HYDROX/AL HYDROX/SIMETH ES 30 ML SUSP UDCUP PO PRN ×2 (09:22→14:11)
[2019-07-20] MEDS: ENOXAPARIN SODIUM 40 MG/0.4 ML SYRINGE SQ SCH (09:22)
[2019-07-20 11:42] VITALS: BP 122/52
[2019-07-20 16:00] VITALS: BP 106/50
[2019-07-20] MEDS: GABAPENTIN 100 MG CAPSULE PO SCH (16:52)
--- NOTE | 2019-07-20 18:00 | NUR ---
[facility] DID NOT QUALIFY FOR AMBULANCE TRANSPORT DUE TO ABLE TO GET UP WITH ASSISTANCE . CALLED TO [facility] FOR REPORT SPOKE WITH EDGARD . PER EDGARD NO SEAPORT PLANNING MANAGER AVAILABLE .. BROTHER OF PATIENT WAS CALLED TO TAKE PATIENT TO [facility] SKILLED NURSING .. DISCHARGE INFORMATION GIVE TO PATIENT WHEELED PATIENT DOWN TO [facility] ,BROTHER HERE TO FOUNDATION DIGGER PATIENT . PACKET GIVEN AND INFORMED TO TAKE TO [facility] ON ARRIVAL. BOTH PATIENT AND BROTHER ZULEMA STEWART UNDERSTAND ..
== END 2019-07-20 18:37 | DRG 392 ==
LOC: EDH 16:51 → EDHIP 20:39 → 2DH 07-13 15:20 → 4DH 07-17 13:17
PROVIDERS: ADMIT Internal Medicine Nephrology; ATTEND Internal Medicine Nephrology
DX: K59.00 Constipation, unspecified (principal); E87.2 Acidosis; E44.0 Moderate protein-calorie malnutrition; E78.5 Hyperlipidemia, unspecified; J44.9 Chronic obstructive pulmonary disease, unspecified; N40.0 Benign prostatic hyperplasia without lower urinary tract symptoms; I10 Essential (primary) hypertension; I95.9 Hypotension, unspecified; D64.9 Anemia, unspecified; E11.21 Type 2 diabetes mellitus with diabetic nephropathy; G89.29 Other chronic pain; N28.9 Disorder of kidney and ureter, unspecified; K40.90 Unilateral inguinal hernia, without obstruction or gangrene, not specified as recurrent; J32.9 Chronic sinusitis, unspecified; Z68.25 Body mass index [BMI] 25.0-25.9, adult; R07.9 Chest pain, unspecified
CPT/HCPCS: 36415; 70450; 71045; 74176; 78452; 80048; 80053; 80061; 82550; 82728; 82948; 83036; 83540; 83550; 83880; 84484; 85025; 85027; 85610; 85730; 93005; 93017; 93306; 94640; 94664; 96374; A9500; G0378; J1170; J1650; J1815; J2405; J2785; J3490; J7040

== ENCOUNTER 2019-10-11 19:31 | Emergency (ER) | payer OTHER, MEDICARE ==
[~2019-10-11 19:31] MED LIST changes: -AMOX-429 PO; +INSLAN SQ; -INSU3INS3 SQ; +LACT10SO PO; -MELO-108 PO
[2019-10-11 19:55] LABS: BASOPHILS % (AUTO) 0.7 % (0.0-5.0); EOSINOPHILS % (AUTO) 1.4 % (0.0-8.0); HEMATOCRIT 35.7 % (42-54); LYMPHOCYTES % (AUTO) 24.5 % (21.0-51.0); MEAN CORPUSCULAR HEMOGLOBIN 27.4 pg (27.0-33.0); MEAN CORPUSCULAR HGB CONC 33.3 g/dL (32.0-36.0); MEAN CORPUSCULAR VOLUME 82.1 fL (79-99); NEUTROPHILS % (AUTO) 64.9 % (40.0-77.0); PLATELET COUNT (AUTO) 376 K/uL (130-400); RED BLOOD CELL COUNT(AUTO) 4.35 MIL/uL (4.50-6.20); RED CELL DISTRIBUTION WIDTH 12.6 % (11.0-15.5); WHITE BLOOD COUNT (AUTO) 5.8 K/uL (4.8-10.8)
[2019-10-11 20:08] LABS: CREATININE 0.8 mg/dL (0.5-1.5); POTASSIUM 3.7 mmol/L (3.5-5.1)
[2019-10-11 20:08] LABS: APPEARANCE,URINE Clear (CLEAR); BILIRUBIN,URINE Negative (NEGATIVE); COLOR,URINE Yellow (YELLOW); GLUCOSE, URINE (UA) >=1000 mg/dL (NEGATIVE); KETONES,URINE Negative (NEGATIVE); LEUKOCYTE ESTERASE ,URINE Negative (NEGATIVE); NITRATE,URINE Negative (NEGATIVE); OCCULT BLOOD,URINE Negative (NEGATIVE); PROTEIN,URINE Negative (NEGATIVE); UROBILINOGEN,URINE 0.2 mg/dL (0.2-1.0)
[2019-10-11 20:14] LABS: ALBUMIN 2.8 g/dL (3.5-5.0); BILIRUBIN,TOTAL 0.3 mg/dL (0.2-1.0); TOTAL PROTEIN, SERUM 6.5 g/dL (6.0-8.3)
[2019-10-11 20:21] LABS: RBC,URINE None Seen /HPF (0-1); WBC,URINE None Seen /HPF (0-1)
[2019-10-11 20:22] LABS: BACTERIA,URINE None Seen /HPF (None Seen); SQUAMOUS EPITHELIAL CELL,UR 0-2 /HPF (0-2)
[2019-10-11] MEDS ORDERED: INSULIN HUMULIN R 100 UNIT/ML 3ML ONE (20:28)
[2019-10-11] MEDS ORDERED: MAG HYDROX/AL HYDROX/SIMETH ES 30 ML SUSP UDCUP ONE (21:53)
[2019-10-11] MEDS ORDERED: LIDOCAINE HCL 2% VISCOUS 15 ML UDCUP ONE (21:53)
[2019-10-11] MEDS ORDERED: FAMOTIDINE 20MG TAB 20 MG TAB ONE (21:53)
== END 2019-10-11 22:25 | disposition home or self-care (01) ==
LOC: EDH 19:31
DX: E11.65 Type 2 diabetes mellitus with hyperglycemia (principal); M19.90 Unspecified osteoarthritis, unspecified site; J45.909 Unspecified asthma, uncomplicated; E78.5 Hyperlipidemia, unspecified; I10 Essential (primary) hypertension; Z87.891 Personal history of nicotine dependence
CPT/HCPCS: 36415; 80053; 81001; 82550; 82948; 84484; 85025; 93005; 96361; 96374; 99284; J1815